=== PATIENT | female | born 1970 | race Caucasian/White ===

== ENCOUNTER → 2018-09-19 22:26 | Outpatient (CLI) | payer OTHER, SELFPAY ==
[2018-08-12 13:11] VITALS: BMI 33.1
== END ==
PROVIDERS: Referring Provider Nurse Practitioner; Visit Provider Nurse Practitioner
DX: N30.90 Cystitis, unspecified without hematuria (principal); R35.0 Frequency of micturition
CPT/HCPCS: 87086; 87088

== ENCOUNTER 2020-11-06 15:43 | Outpatient (RCR) | payer OTHER, SELFPAY ==
[2020-11-12 15:43] VITALS: BMI 33.1
== END 2020-12-30 23:59 ==
LOC: IMMUN 15:43
PROVIDERS: PCP Registered Nurse; Referring Provider Family Medicine; Visit Provider Family Medicine
DX: Z23 Encounter for immunization (principal)
CPT/HCPCS: 0001A; 0002A; 91300